=== PATIENT | male | born 1955 | race Caucasian/White ===

== ENCOUNTER 2017-04-13 09:34 | Outpatient (CLI) | payer OTHER | END 2017-04-13 19:30 | disposition home or self-care (01) | LOC: SMI 09:34 | PROVIDERS: ATTEND Internal Medicine | DX: K80.20 Calculus of gallbladder without cholecystitis without obstruction (principal); K82.8 Other specified diseases of gallbladder; K85.90 Acute pancreatitis without necrosis or infection, unspecified | CPT/HCPCS: 74181 ==